=== PATIENT | male | born 1990 | race Caucasian/White ===

== ENCOUNTER 2022-11-27 18:55 | Inpatient (IN) | payer OTHER ==
[2022-11-27 20:04] VITALS: BMI 21.7
[2022-11-27] MEDS ORDERED: ONDANSETRON *ODT* 4 MG TABLET SL PRN (21:36)
[2022-11-27] MEDS ORDERED: LOPERAMIDE HCL 2 MG CAPSULE PO PRN (21:36)
[2022-11-27] MEDS ORDERED: METHOCARBAMOL 500 MG TABLET PO PRN (21:36)
[2022-11-27] MEDS ORDERED: MAG HYDROX/AL HYDROX/SIMETH 30 ML UNIT-DOSE CUP PO PRN (21:36)
[2022-11-27] MEDS ORDERED: BENZOCAINE/MENTHOL (CHLORASEPTIC ) LOZENGE MM PRN (21:36)
[2022-11-27] MEDS ORDERED: guaiFENesin 200 MG/10 ML 10 ML UNIT-DOSE CUPS PO PRN (21:36)
[2022-11-27] MEDS ORDERED: POLYETHYLENE GLYCOL (HEALTHYLAX) 3350 17 GM PACKET PO PRN (21:36)
[2022-11-27] MEDS ORDERED: IBUPROFEN 400 MG TABLET (FP) PO PRN (21:36)
[2022-11-27] MEDS ORDERED: ACETAMINOPHEN 325 MG TABLET (FP) PO PRN ×2 (21:36)
[2022-11-27] MEDS ORDERED: DICYCLOMINE HCL 10 MG CAPSULE PO PRN (21:36)
[2022-11-27] MEDS ORDERED: IBUPROFEN 600 MG TABLET (FP) PO PRN (21:36)
[2022-11-27] MEDS ORDERED: MELATONIN 5 MG TABLETS PO PRN (21:36)
[2022-11-27] MEDS ORDERED: MAGNESIUM HYDROX 2400MG/30ML ORAL SUSPENSION 30 ML CUP PO PRN (21:36)
[2022-11-27] MEDS ORDERED: P-EPHED 60MG/TRIPROLIDI 2.5MG TABLET PO PRN (21:36)
[2022-11-27] MEDS ORDERED: BISMUTH SUBSALICYLATE 524 MG/30 ML PO PRN (21:36)
[2022-11-27] MEDS ORDERED: chlordiazePOXIDE HCL 25 MG CAPSULE PO PRN (21:37)
[2022-11-27] MEDS ORDERED: METOPROLOL TARTRATE 25 MG TABLET (FP) PO ONE (21:39)
[2022-11-27] MEDS ORDERED: TRIMETHOBENZAMIDE HCL 200MG/2ML INJ IM ONE (22:00)
[2022-11-27] MEDS ORDERED: LORazepam 2 MG/ML SDV VIAL IM ONE (22:00)
[2022-11-27] MEDS ORDERED: levETIRAcetam 500 MG TABLET (FP) PO ONE (23:56)
[2022-11-27] MEDS ORDERED: METOPROLOL TARTRATE 25 MG TABLET (FP) ONE (23:56)
[2022-11-27] MEDS: levETIRAcetam 500 MG TABLET (FP) PO SCH (23:57)
[2022-11-27] MEDS: THIAMINE HCL 100 MG TABLET (FP) PO SCH (23:57)
[2022-11-27] MEDS: chlordiazePOXIDE HCL 25 MG CAPSULE PO SCH (23:58)
[2022-11-27] MEDS ORDERED: chlordiazePOXIDE HCL 25 MG CAPSULE ONE (23:58)
[2022-11-28] MEDS: chlordiazePOXIDE HCL 25 MG CAPSULE PO SCH ×4 (06:04→22:31)
[2022-11-28] MEDS: levETIRAcetam 500 MG TABLET (FP) PO SCH ×2 (10:43→22:31)
[2022-11-28] MEDS: PRENATAL VITAMINS W/ FOLIC ACID TABLET (FP) PO SCH (10:43)
[2022-11-28 13:39] LABS: HEMATOCRIT 35.2 % (35.4-49); HEMOGLOBIN 12.3 GM/dL (11.7-16.9); MCHC 34.9 g/dl (32.0-35.9); MEAN CELL VOLUME 91.7 fl (80-96); PLATELET COUNT 256 10^3/uL (134-434); RBC 3.84 M/mm3 (4.00-5.60); WHITE BLOOD COUNT 7.6 K/mm3 (4.0-10.0)
[2022-11-28 14:30] LABS: ALBUMIN 3.2 g/dl (3.4-5.0); CALCIUM 8.3 mg/dL (8.5-10.1)
[2022-11-28 14:31] LABS: BLOOD UREA NITROGEN 3.1 mg/dL (7-18)
[2022-11-28 14:33] LABS: CREATININE 0.6 mg/dL (0.55-1.3)
[2022-11-28 14:35] LABS: BILIRUBIN,TOTAL 0.9 mg/dL (0.2-1); TOT PROT 6.2 g/dl (6.4-8.2)
[2022-11-28] MEDS: THIAMINE HCL 100 MG TABLET (FP) PO SCH (22:31)
[2022-11-29] MEDS: chlordiazePOXIDE HCL 25 MG CAPSULE PO SCH ×2 (05:29→10:26)
[2022-11-29 06:44] VITALS: RESP 16
[2022-11-29 09:23] VITALS: BP 118/71; PULSE 76; TEMP 97.8
[2022-11-29] MEDS: levETIRAcetam 500 MG TABLET (FP) PO SCH (10:24)
[2022-11-29] MEDS: PRENATAL VITAMINS W/ FOLIC ACID TABLET (FP) PO SCH (10:24)
[2022-11-30] MEDS ORDERED: chlordiazePOXIDE HCL 10 MG CAPSULE PO PRN
[2022-11-30] MEDS ORDERED: chlordiazePOXIDE HCL 10 MG CAPSULE PO SCH (05:00)
[2022-12-01] MEDS ORDERED: chlordiazePOXIDE HCL 10 MG CAPSULE PO SCH (05:00)
[2022-12-02] MEDS ORDERED: chlordiazePOXIDE HCL 10 MG CAPSULE PO ONE (05:00)
== END 2022-11-29 12:05 | disposition left against medical advice (07) | DRG 770 ==
LOC: YASAS 18:55 → Y6N 23:48
PROVIDERS: ADMIT Allergy & Immunology; ATTEND Surgery
PROC: HZ2ZZZZ Detoxification Services for Substance Abuse Treatment (ICD-10-PCS; principal; 2022-11-27)
DX: F10.230 Alcohol dependence with withdrawal, uncomplicated (principal); Z86.69 Personal history of other diseases of the nervous system and sense organs; Z91.51 Personal history of suicidal behavior
CPT/HCPCS: 36415; 80053; 85027; 86780; 87811; C9803-CS; Q0162; U0003; U0005